=== PATIENT | male | born 1985 | race Caucasian/White ===

== ENCOUNTER 2017-10-20 14:51 | Inpatient (IN) | payer OTHER ==
[~2017-10-20] VITALS: Ht 177.8 cm; Wt 73.9 kg
[~2017-10-20 14:51] MED LIST: RISPERDAL2 MG PO; RISPERDAL25 MG/2 ML IM
[2017-10-20 16:15] LABS: HEMATOCRIT 42.2 % (38.0-50.0); HEMOGLOBIN 14.3 G/DL (12.5-16.6); MCHC 33.9 G/DL (30.0-36.0); MCV 88.5 FL (86-99); PLATELET COUNT 284 K/uL (156-360); RBC DIS.WIDTH-CV 12.7 % (11.8-14.6); RBC DIS.WIDTH-SD 41.5 % (39-53); RED BLOOD COUNT 4.77 M/uL (4.00-5.50)
[2017-10-20 16:24] LABS: ALBUMIN 4.6 g/dL (3.2-4.8); CHLORIDE 104 mEq/L (99-109); POTASSIUM 4.2 mEq/L (3.7-5.4); SODIUM 140 mEq/L (136-147)
[2017-10-20 16:26] LABS: GLUCOSE 85 mg/dL (70-99)
[2017-10-20 16:27] LABS: TOTAL PROTEIN 7.4 g/dL (6.4-8.3)
[2017-10-20 16:28] LABS: TOTAL BILIRUBIN 0.4 mg/dL (0.0-1.0)
[2017-10-20 16:29] LABS: SERUM ETHYL ALCOHOL < 10 mg/dL
[2017-10-20 16:30] LABS: ALKALINE PHOSPHATASE 65 IU/L (3-129); CREATININE 1.3 mg/dL (0.6-1.3); GFR ESTIMATE (CALCULATED) > 59 mL/min/ (58.99-99999)
[2017-10-20 16:31] LABS: UREA NITROGEN (BUN) 26 mg/dL (9-23)
[2017-10-20 16:32] LABS: AST (GOT) 34 IU/L (2-34)
[2017-10-20 16:33] LABS: ALT (GPT) 31 IU/L (3-49)
[2017-10-20 17:41] LABS: APPEARANCE CLEAR ((CLEAR)); BILIRUBIN NEGATIVE; BLOOD NEGATIVE; COLOR YELLOW ((YELLOW)); GLUCOSE (STRIP) NEGATIVE; KETONES NEGATIVE; LEUKOCYTES NEGATIVE; NITRITE NEGATIVE; PROTEIN (STRIP) NEGATIVE; SPECIFIC GRAVITY 1.027 (1.000-1.030); UCUL ADDED? NO; UROBILINOGEN 0.2 MG/DL (0.2-1.0)
[2017-10-20 18:00] LABS: AMPHETAMINE NEGATIVE (500 ng/mL); BARBITURATES NEGATIVE (200 ng/mL); BENZODIAZEPINES NEGATIVE (150 ng/mL); BUPRENORPHINE NEGATIVE (10 ng/mL); COCAINE NEGATIVE (150 ng/mL); METHADONE NEGATIVE (200 ng/mL); METHAMPHETAMINE NEGATIVE (500 ng/mL); OPIATES (MORPHINE) NEGATIVE (100 ng/mL); OXYCODONE NEGATIVE (100 ng/mL); PHENCYCLIDINE NEGATIVE (25 ng/mL); PROPOXYPHENE NEGATIVE (300 ng/mL); THC CANNABINOIDS NEGATIVE (50 ng/mL); TRICYCLIC ANTIDEPRESSANTS NEGATIVE (300 ng/mL)
[2017-10-20 20:47] VITALS: BP 118/64
[2017-10-20 21:24] VITALS: BP 118/64
[2017-10-21 07:50] VITALS: BP 102/55
[2017-10-21 15:27] VITALS: BP 96/51
[2017-10-22 08:02] VITALS: BP 113/56
[2017-10-22 15:32] VITALS: BP 103/61
[2017-10-23 09:33] VITALS: BP 110/56
[2017-10-23 16:15] VITALS: BP 115/56
[2017-10-24 08:13] VITALS: BP 102/59
[2017-10-24] MEDS ORDERED: RISPERDAL2 MG PO (09:24)
== END 2017-10-24 12:45 | disposition home or self-care (01) | DRG 885 ==
LOC: EME 14:51 → 1WEST 18:49 → EDOF 18:49 → 1WEST 18:49 → ENRESERV 20:31 → 1WEST 20:32
PROVIDERS: Emergency Medicine
DX: F20.0 Paranoid schizophrenia (principal); Z59.0 Homelessness; F41.9 Anxiety disorder, unspecified; Z91.14 Patient's other noncompliance with medication regimen; Z56.0 Unemployment, unspecified
CPT/HCPCS: 80053; 81003; 85027; 90837; 97150 GO; 97165 GO; 99281; 99285; G0480